=== PATIENT | male | born 1950 | race Caucasian/White ===

== ENCOUNTER 2017-08-02 10:36 | Emergency (ER) | payer BC, MEDICARE ==
[2017-08-02 10:58] VITALS: O2SAT 95
[2017-08-02] MEDS ORDERED: Adacel Vial IM ONE ×2 (11:13→11:37)
--- NOTE | 2017-08-02 11:20 | ERPHSYRPT ---
- History of Present Illness Time Seen by Provider: 08/02/17 11:07 Source: patient Patient Subjective Stated Complaint: pt states he was using a slicer and lacerated right thumb 30 minutes [facility] to ER. Triage Nursing Assessment: pt pink, warm, dry. pt has an evulsion laceration to right thumb, actively bleeding at this time. pressure dressing applied. radial pulse strong. Physician History: CC: cut finger hx: 67 y/o patient of Dr Foster sliced right thumb while cutting oranges for his 's [employer] dinner. He has no other injuries. Unsure last tetanus vaccine. Bleeding thumb so came to ER. Occurred this AM. Occurred: just prior to arrival Extremities Pain Location: thumb: right Allergies/Adverse Reactions: No Known Drug Allergies Allergy (Unverified 08/02/17 10:57) Home Medications: Unobtainable [Unobtainable] 08/02/17 [History] Hx Tetanus, Diphtheria Vaccination/Date Given: Yes (unknown) Hx Influenza Vaccination/Date Given: No Hx Pneumococcal Vaccination/Date Given: No Immunizations Up to Date: Yes - Review of Systems Constitutional: No Symptoms Musculoskeletal: Injury (sliced right thumb) Neurological: No Focal Weakness, No Parasthesia - Past Medical History Pertinent Past Medical History: Yes Cardiac History: High Cholesterol, Hypertension Other Medical History: enlarged prostate - Past Surgical History Past Surgical History: Yes Other Surgical History: cyst removal - Social History Smoking Status: Former smoker Exposure to second hand smoke: No Drug Use: none Patient Lives Alone: No - Nursing Vital Signs Nursing Vital Signs: Initial Vital Signs Temperature 98.1 F 08/02/17 10:53 Pulse Rate 71 08/02/17 10:53 Respiratory Rate 18 08/02/17 10:53 Blood Pressure 153/98 08/02/17 10:53 O2 Sat by Pulse Oximetry 95 08/02/17 10:53 Pain Scale Pain Intensity 2 - Physical Exam General Appearance: alert Eyes, Ears, Nose, Throat Exam: moist mucous membranes Neck Exam: supple Cardiovascular/Respiratory Exam: regular rate/rhythm Neuro/Tendon Exam: normal sensation, normal motor functions Mental Status Exam: alert, oriented x 3, cooperative Skin Exam: warm, dry, other (1cm X 2 cm sliced right thumb not involving nail. Oozing blood. Superficial and too wide to close.) SpO2: 95 Oxygen Delivery: Room Air - Course Nursing assessment & vital signs reviewed: Yes Ordered Tests: Active Orders 24 hr Category Date Time Status Wound Care STAT Care 08/02/17 11:13 Active Medication Summary Discontinued Medications Generic Name Dose Route Start Last Admin Trade Name Joni PRN Reason Stop Dose Admin Diphtheria/Tetanus/Acell Pertussis 0.5 ml 08/02/17 11:13 Adacel Vial IM 08/02/17 11:14 .ONCE ONE - Progress Progress Note: 08/02/17 11:18 Will cleanse, update tetanus vaccine, and dress with surgicel dressing. Discussed possible skin grafting by a hand surgeon but pt is not interested in that at this time. Counseled pt/family regarding: diagnosis, need for follow-up - Departure Time of Disposition: 11:20 Departure Disposition: Home Clinical Impression: Laceration of right thumb Qualifiers: Encounter type: initial encounter Damage to nail status: without damage Foreign body presence: without foreign body Qualified Code(s): S61.011A - Laceration without foreign body of right thumb without damage to nail, initial encounter Condition: Stable Critical Care Time: No Referrals: EDEL FOSTER MD [Primary Care Provider] - Instructions: Laceration Repair -- Finger Additional Instructions: Change dressing Friday night and then daily. Hold pressure for any bleeding. Report any sign of infection. Follow up next week with Dr Foster.
[2017-08-02 11:55] VITALS: BP 154/94; PULSE 73
== END 2017-08-02 11:55 | disposition home or self-care (01) ==
LOC: ED 10:36
DX: S61.011A Laceration without foreign body of right thumb without damage to nail, initial encounter (principal); W26.8XXA Contact with other sharp object(s), not elsewhere classified, initial encounter; Y93.G1 Activity, food preparation and clean up
CPT/HCPCS: 90471; 90715; 99283

== ENCOUNTER 2019-06-07 15:05 | Emergency (ER) | payer BC, MEDICARE, OTHER ==
--- NOTE | 2019-06-07 15:52 | ERPHSYRPT ---
- History of Present Illness Time Seen by Provider: 06/07/19 15:15 Source: patient Exam Limitations: no limitations Patient Subjective Stated Complaint: At work and a barrel was dropped on top of his right hand/wrist causing swelling and bruising, skin tear to right wrist and left hand index finger Triage Nursing Assessment: Vitals wnl, pulses normal, capillary refill <3, rates pain 7/10, able to move fingers on right hand Occurred: just prior to arrival Method of Injury: direct blow Quality: constant Severity of Pain-Max: moderate Severity of Pain-Current: moderate Extremities Pain Location: wrist: bilateral Modifying Factors: Improves With: movement Associated Symptoms: none Allergies/Adverse Reactions: No Known Drug Allergies Allergy (Verified 06/07/19 15:17) Home Medications: Amlodipine Besylate [Norvasc] 10 mg PO DAILY 06/07/19 [History] Atorvastatin Calcium [Lipitor] 10 mg PO DAILY 06/07/19 [History] Finasteride 5 mg PO DAILY 06/07/19 [History] Lisinopril 40 mg PO DAILY 06/07/19 [History] Tamsulosin HCl 0.4 mg [Flomax 0.4 MG] 0.4 mg PO DAILY 06/07/19 [History] Hx Tetanus, Diphtheria Vaccination/Date Given: Yes (unknown) Hx Influenza Vaccination/Date Given: No Hx Pneumococcal Vaccination/Date Given: No - Review of Systems Constitutional: No Symptoms, No Fever, No Chills Eyes: No Symptoms Ears, Nose, & Throat: No Symptoms Respiratory: No Symptoms, No Cough, No Dyspnea Cardiac: No Symptoms, No Chest Pain, No Edema, No Syncope Abdominal/Gastrointestinal: No Abdominal Pain, No Nausea, No Vomiting, No Diarrhea Genitourinary Symptoms: No Dysuria Musculoskeletal: No Back Pain, No Neck Pain Skin: No Rash Neurological: No Dizziness, No Focal Weakness, No Sensory Changes Psychological: No Symptoms Endocrine: No Symptoms All Other Systems: Reviewed and Negative - Past Medical History Pertinent Past Medical History: Yes Cardiac History: High Cholesterol, Hypertension Other Medical History: enlarged prostate - Past Surgical History Past Surgical History: Yes Other Surgical History: cyst removal - Social History Smoking Status: Former smoker Exposure to second hand smoke: No Drug Use: none Patient Lives Alone: No - Nursing Vital Signs Nursing Vital Signs: Initial Vital Signs Temperature 98.1 F 06/07/19 15:08 Pulse Rate 70 09/23/19 15:08 Blood Pressure 125/73 06/07/19 15:08 O2 Sat by Pulse Oximetry 99 06/07/19 15:08 Pain Scale Pain Intensity 9 - Physical Exam General Appearance: mild distress, alert Eyes, Ears, Nose, Throat Exam: normal ENT inspection Neck Exam: normal inspection Cardiovascular/Respiratory Exam: chest non-tender, normal breath sounds Abdominal Exam: non-tender Back Exam: normal inspection Shoulder Exam: normal inspection Elbow/Forearm Exam: normal inspection Wrist Exam: bone tenderness (near scaphoid, right wrist), limited ROM (due to pain), pain, soft tissue tenderness (right more than left, some superficial skin tears), swelling Hand Exam: normal inspection Neuro/Tendon Exam: normal sensation Mental Status Exam: alert, oriented x 3 Skin Exam: normal color SpO2 Interpretation: normal SpO2: 99 O2 Delivery: Room Air Procedures - Splinting Location of Splint: Right, Wrist Type of Splint: Orthoglass Short Arm Splint (with thumb spica) Splint Applied By: ED Nurse Pre-Proc Neuro Vasc Exam: normal Post-Proc Neuro Vasc Exam: neurovascular intact, good alignment - Course Nursing assessment & vital signs reviewed: Yes - Radiology Exams Right Wrist X-ray Interpretation: Discussed w/ radiologist, No Fracture, Other (possible rotational (ligament) injury to right scaphoid bone) Ordered Tests: Active Orders 24 hr Category Date Time Status Splint STAT Care 06/07/19 17:02 Active FOREARM Stat Exams 06/07/19 16:38 Completed WRIST (MIN 3 VIEWS) Stat Exams 06/07/19 15:38 Completed Medication Summary Discontinued Medications Generic Name Dose Route Start Last Admin Trade Name Joni PRN Reason Stop Dose Admin Hydrocodone Bitart/Acetaminophen 1 tab 06/07/19 16:42 06/07/19 16:44 [place] 5/325 Mg PO 06/07/19 16:43 1 tab STAT ONE Administration Hydrocodone Bitart/Acetaminophen Confirm 06/07/19 16:44 [place] 5/325 Mg Administered 06/07/19 16:45 Dose 1 tab .ROUTE .STK-MED ONE - Progress Progress: improved, re-examined Progress Note: 06/07/19 21:38 Concern of injury to right scaphoid bone. Immobiized and refer to ortho. Counseled pt/family regarding: diagnosis, need for follow-up (Ortho clinic), rad results - Departure Departure Disposition: Home Clinical Impression: Right wrist sprain Qualifiers: Encounter type: initial encounter Qualified Code(s): S63.501A - Unspecified sprain of right wrist, initial encounter Condition: Stable Critical Care Time: No Referrals: DOCTOR,NO FAMILY [Primary Care Provider] - As Directed (Orthopedic clinic here.) Additional Instructions: Keep hand splinted, elevate, ice, medicine as needed, see orthopedic DrJodie for recheck of possible wrist bone injury. Plan of Treatment: Immobilize with splint with thumb spica, see ortho, possible scaphoid fx or ligament injury Prescriptions: Hydrocodone/APAP 5-325 Tab^^^ [[place] 5-325 Tablet^^^] 1 tab PO Q6HPRN PRN #12 tablet MDD 4 PRN Reason: Pain Cephalexin Mh 500 mg [Keflex 500 mg] 500 mg PO TID #15 capsule
--- NOTE | 2019-06-07 16:12 | XRAY ---
Exam: Right wrist series from 06/07/2019. Comparison: None. Indication: Swelling/smashed right wrist. Findings: AP, 2 oblique, and lateral radiograph of the right wrist were obtained. There is marked soft tissue swelling overlying the dorsal aspect of the distal right forearm, carpal region, and proximal metacarpal region consistent with a prominent soft tissue hematoma. I see no underlying fracture or dislocation. There appear to be 2 or 3 tiny soft tissue foreign bodies along the volar aspect of the distal right forearm skin line on the lateral image. Correlate clinically Incidentally, the joint space between the carpal scaphoid bone and lunate bone is somewhat prominent measuring about 4 mm across on the AP image. Correlate clinically. This is sometimes associated with rotary subluxation of the carpal scaphoid bone. Impression: 1. There is marked soft tissue swelling overlying the posterior aspect of the right wrist, as discussed above. This is suggestive of a prominent soft tissue hematoma. 2. I see no underlying fracture or dislocation. 3. However, the distance between the scaphoid bone and lunate bone appears somewhat prominent on the AP view measuring at least 4 mm across. Correlate clinically regarding rotary subluxation of the scaphoid bone.
[2019-06-07] MEDS ORDERED: NORCO 5/325 MG PO ONE (16:42)
[2019-06-07] MEDS ORDERED: NORCO 5/325 MG ONE (16:44)
[2019-06-07 17:09] VITALS: BP 113/75; PULSE 75; O2SAT 99
--- NOTE | 2019-06-07 17:21 | XRAY ---
Exam: Two-view right forearm series from 06/07/2019. Comparison: None. Indication: Trauma, complains of pain within distal right right forearm/wrist. Findings: AP and lateral images of the right forearm were obtained. I see several tiny debris particles on the skin line along the volar aspect of the right wrist. Correlate clinically. There is at least moderate soft tissue swelling/hematoma formation overlying the dorsal aspect of the right wrist centered on the carpal region. I see no acute fracture of the right radius or ulna. There is a 2 mm soft tissue density projected just medial to the proximal right fifth metacarpal on the AP image. Correlate clinically regarding a small foreign body or something on the patient's skin in this projection. The right elbow joint and right wrist joint appear essentially unremarkable. However, there is some apparent widening of the joint space between the carpal scaphoid bone and lunate bone (6 mm). This may represent rotary subluxation of the scaphoid bone. Impression: 1. There is significant soft tissue swelling overlying the dorsal aspect of the right wrist and both medially and laterally about the distal right forearm. 2. I see no acute fracture of the right radius or ulna. 3. However, there is a widened joint space between the lunate bone and scaphoid bone (6 mm). Consider rotary subluxation of the scaphoid. Orthopedic consult may be helpful. 4. Tiny punctate soft tissue density is seen just medial to the proximal right fifth metacarpal. Correlate clinically regarding a soft tissue foreign body or something on the skin in this projection. I also note several small debris particles overlying the skin line along the volar aspect of the right wrist on the lateral image. Note: Not mentioned above, there is a 1.75 cm in length by 0.4 cm in width calcification adjacent to the lateral epicondyle of the distal right humerus. This appears to be old and may relate to an old injury or hydroxyapatite deposition disease/calcific tendinitis.
== END 2019-06-07 17:28 | disposition home or self-care (01) ==
LOC: ED 15:05
DX: S63.501A Unspecified sprain of right wrist, initial encounter (principal); W20.8XXA Other cause of strike by thrown, projected or falling object, initial encounter; Y93.89 Activity, other specified; Y92.89 Other specified places as the place of occurrence of the external cause; Y99.0 Civilian activity done for income or pay; I10 Essential (primary) hypertension; E78.00 Pure hypercholesterolemia, unspecified
CPT/HCPCS: 29126; 73090; 73110; 99284; A9270-GY